=== PATIENT | female | born 1950 | race Caucasian/White ===

== ENCOUNTER 2020-01-20 15:24 | Inpatient (IN) | payer MEDICARE ==
[~2020-01-20] VITALS: Ht 170.2 cm; Wt 105.4 kg
[2020-01-20] MEDS ORDERED: ATEN25TA PO (15:34)
[2020-01-20] MEDS ORDERED: KETOROLAC 30 MG/ML 1ML VIAL IV ONE (16:30)
[2020-01-20] MEDS ORDERED: NS 500 ML IV ONE (16:30)
[2020-01-20 16:43] LABS: BASO # 0.1 10^3/uL (0.0-0.2); BASO % 0.3 % (0.0-1.0); EOS # 0.1 10^3/uL (0.0-0.5); EOS % 0.8 % (0.0-3.0); HEMATOCRIT 43.3 % (36.0-47.0); HEMOGLOBIN 14.6 g/dl (12.0-15.5); LYMPH # 2.3 10^3/uL (1.5-5.0); LYMPH % 15.7 % (24.0-44.0); MEAN CORPUSCULAR HGB CONC 33.7 g/dl (32.0-36.5); MEAN CORPUSCULAR VOLUME 88.9 fl (80.0-96.0); MONO % 7.1 % (0.0-5.0); NEUTROPHILS % 75.8 % (36.0-66.0); PLATELET COUNT, AUTOMATED 260 10^3/uL (150-450); RED BLOOD COUNT 4.87 10^6/uL (4.00-5.40); WHITE BLOOD COUNT 14.6 10^3/uL (4.0-10.0)
[2020-01-20 17:12] LABS: ALBUMIN 4.1 GM/DL (3.2-5.2); BILIRUBIN,DIRECT 0.3 MG/DL (0.0-0.2); BILIRUBIN,TOTAL 1.4 MG/DL (0.2-1.0); TOTAL PROTEIN 7.8 GM/DL (6.4-8.2)
--- NOTE | 2020-01-20 18:11 | REPVR ---
PROCEDURE INFORMATION: Exam: US Abdomen, Limited; Right Upper Quadrant Exam date and time: 01/20/2020 5:59 PM Age: 69 years old Clinical indication: Abdominal pain; Additional info: Ruq pain TECHNIQUE: Imaging protocol: US abdomen. Real time ultrasound with image documentation. Limited exam focused on the right upper quadrant. COMPARISON: No relevant prior studies available. FINDINGS: Liver: Normal. No masses. Gallbladder: There is a 2.4 cm gallstone present which may be impacted within the gallbladder neck. No wall thickening. No pericholecystic fluid. Clinical correlation to exclude cholecystitis suggested. Common bile duct: The common bile duct measures 3 mm. No mass or choledocholithiasis. Pancreas: Pancreas suboptimally visualized. Visualized segments appear unremarkable. Right kidney: Right kidney measures 9.9 x 4.2 x 4.5 cm. IMPRESSION: 1. There is a 2.4 cm gallstone present which may be impacted within the gallbladder neck. No wall thickening. No pericholecystic fluid. Clinical correlation to exclude cholecystitis suggested. 2. Suboptimal visualization of the pancreas although no gross abnormality demonstrated. 3. No dilatation of the biliary tree. Electronically signed by: Tanner Hampton On 01/20/2020 18:11:57 PM
[2020-01-20 18:54] LABS: CALCIUM LEVEL 9.4 MG/DL (8.8-10.2); CREATININE FOR GFR 1.34 MG/DL (0.55-1.30); POTASSIUM SERUM 3.8 MEQ/L (3.5-5.1)
[2020-01-20] MEDS ORDERED: ONDANSETRON 4MG/2ML VIAL IV PRN (19:00)
[2020-01-20] MEDS ORDERED: PERCOCET 5MG/325MG TAB PO PRN ×2 (19:00)
[2020-01-20] MEDS ORDERED: MEROPENEM INJ 1 GM in IV 1 EA IV ONE (19:15)
[2020-01-20] MEDS: metroNIDAZOLE 500 MG in IV 1 EA IV SCH (19:15)
[2020-01-20] MEDS ORDERED: SIMV40TA20 PO (19:19)
[2020-01-20] MEDS ORDERED: D31000TA2 PO (19:19)
[2020-01-20] MEDS ORDERED: HYDR25TAB PO (19:19)
[2020-01-20] MEDS ORDERED: OMEP-218 PO (19:19)
[2020-01-20] MEDS ORDERED: VITMTA PO (19:19)
[2020-01-20] MEDS ORDERED: ATEN50TA2 PO (19:19)
[2020-01-20] MEDS ORDERED: SERT-138 PO (19:19)
[2020-01-20] MEDS: CIPROFLOXACIN 400 MG in IV 1 EA IV SCH (20:20)
[2020-01-20] MEDS: MORPHINE 2 MG/ML 1ML VIAL (J2270) IV PRN (20:20)
[2020-01-20 22:04] VITALS: BP 116/62
[2020-01-20] MEDS: PANTOPRAZOLE 40MG VIAL (C9113 PER 1) IV SCH (22:49)
[2020-01-20] MEDS: LR 1,000 ML IV SCH (22:50)
[2020-01-20] MEDS: ENOXAPARIN 40MG/0.4ML SYRINGE (J1650 PER 10MG) SC SCH (22:50)
[2020-01-21] VITALS (10 sets, daily range): BP systolic 101–142; BP diastolic 59–70
[2020-01-21] MEDS: metroNIDAZOLE 500 MG in IV 1 EA IV SCH ×2 (03:10→16:35)
[2020-01-21] MEDS: ACETAMINOPHEN TAB 650MG DOSE (2X325MG) PO PRN (03:10)
--- NOTE | 2020-01-21 08:11 | HPEPDOC ---
General Surgery H&P Date of Admission Jan 20, 2020 Attending Physician: PORTIA WALLS MD History and Physical CHIEF COMPLAINT: abdominal pain HISTORY OF PRESENT ILLNESS: Patient is a 69-year-old female who drove in from [facility] after she was seen there earlier in the day with complaints of a 2 day ongoing history of right flank/right back pain radiating to her mid chest area, epigastric area and right upper quadrant area for which was found to have evidence for incarcerated stone in the neck the gallbladder and leukocytosis consistent with acute cholecystitis. She was told she needed surgery in that she presented to our emergency room. She describes the pain as sharp and constant with associated na usea but she did not throw up. She denies any associated fevers or chills. She reports a remote history of similar symptoms but has not bothered her in years. In the emergency room she initially presented with 10 out of 10 pain, improved with pain medication. We repeated the studies and confirmed the findings of acute cholecystitis and she was subsequently admitted. ALLERGIES: Please see below. HOME MEDICATIONS: Please see below. PAST MEDICAL HISTORY: 1. Hypertension. 2.. Hypercholesterolemia 3. Depression. 4. psoriatic arthritis 5. morbid obesity 6. cervical cancer PAST SURGICAL HISTORY: 1. hysterectomy (lower vertical midline incision). 2. catract surgery. PERSONAL/SOCIAL HISTORY: Denies smoking, occasional alcohol use REVIEW OF SYSTEMS: GENERAL: Denies chills, fatigue, fever, weight gain and weight loss. HEENT: [Denies blurred vision and double vision. Denies ear symptoms. Denies hoarseness]. NECK: [Denies any neck pain]. CARDIOVASCULAR: [Denies chest pain and palpitations]. MUSCULOSKELETAL: Reports history of psoriatic arthritis not on maintenance medications. SKIN: [Denies rash]. NEUROLOGIC: [Denies headache, stroke and transient ischemic attack]. PSYCHIATRIC: Reports history of depression. ENDOCRINE: [Denies thyroid disease]. HEMATOLOGY/ONCOLOGY: [Denies any bleeding or clotting disorder]. HEART: [Denies any chest pains, palpitations, paroxysmal dyspnea, orthopnea]. PULMONARY: [Denies chronic cough, dyspnea and wheezing]. GASTROINTESTINAL: See HPI. GENITOURINARY: [Denies dysuria, frequency, hematuria and nocturia]. ENDOCRINE: [Denies polydipsia, polyphagia, polyuria, heat or cold intolerance]. INFECTIOUS: [Denies any recent upper respiratory tract infection, UTI, need for use of antibiotics]. NUTRITION: Reports poor appetite since starting symptoms. PHYSICAL EXAMINATION: VITAL SIGNS: Please see below. GENERAL APPEARANCE: Patient seen laying in bed, relatively comfortable. Reports pain as 3 out of 10. [Awake, alert, oriented]. HEENT: [Normocephalic, atraumatic. Campus palpebral conjunctivae. Anicteric sclerae. Lips dry]. CHEST: [No chest wall abnormalities. Normal respiratory motion/effort]. NECK: [Supple. No thyromegaly. No lymphadenopathies]. LUNGS: [Lung sounds are clear to auscultation bilaterally. No wheezing appreciated]. HEART: [No chest wall abnormalities. Heart rate and rhythm are regular with no murmurs]. ABDOMEN: Markedly obese, large draping pannus, minimally distended. Lower vertical midline incision no palpable hernia. Tender on palpation over the epigastric area with mild guarding also at the right upper quadrant area. Nontender in the other quadrants. SKIN: Warm and dry. NEUROLOGICAL: Awake, alert and oriented. ANCILLARIES: . LABORATORY DATA: Please see below. MICROBIOLOGY: Please see below. IMAGING: Ultrasound the gallbladder showing stone at the neck the gallbladder, nonmovable IMPRESSION AND PLAN: Patient with signs and symptoms of biliary colic/acute cholecystitis with an impacted stone in the neck the gallbladder and continuing pain consistent with acute cholecystitis. Given the persistence of symptoms, I have admitted her to the hospital. Started her on antibiotics to cover for gram negatives and anaerobes. She will remain nothing by mouth for bowel rest and have set her up for laparoscopic cholecystectomy the following day. I discussed with the patient the details of the proposed procedure, the benefits of performing the procedure, the most common risks on doing the procedure. This may include risks for bleeding, infection, bile duct injury, bile leakage, injury to nearby bowels or blood vessels with laparoscopy. I have given her a chance to ask questions, voice out concerns. Patient has agreed to proceed. Vital Signs Vital Signs Date Time Temp Pulse Resp B/P (MAP) Pulse Ox O2 Delivery O2 Flow Rate FiO2 01/21/20 06:00 96.1 54 18 101/59 (73) 96 Room Air I&Os I&O- Last 24 Hours up to 6 AM 01/21/20 06:00 Intake Total 1005 ml Output Total 600 ml Balance 405 ml Laboratory Data Labs 24H Laboratory Tests 2 01/20/20 16:33: Immature Granulocyte % (Auto) 0.3, Neutrophils (%) (Auto) 75.8H, Lymphocytes (%) (Auto) 15.7L, Monocytes (%) (Auto) 7.1H, Eosinophils (%) (Auto) 0.8, Basophils (%) (Auto) 0.3, Neutrophils # (Auto) 11.0H, Lymphocytes # (Auto) 2.3, Monocytes # (Auto) 1.0H, Eosinophils # (Auto) 0.1, Basophils # (Auto) 0.1, Nucleated Red Blood Cells % (auto) 0.0, Anion Gap 10, Glomerular Filtration Rate 42.0L, Calcium Level 9.4, Total Bilirubin 1.4H, Direct Bilirubin 0.3H, Aspartate Amino Transf (AST/SGOT) 15, Alanine Aminotransferase (ALT/SGPT) 18, Alkaline Phosphatase 122H, Total Protein 7.8, Albumin 4.1, Albumin/Globulin Ratio 1.1L, Lipase 80 01/20/20 19:14: Coronavirus (COVID-19)(PCR) NEGATIVE CBC/BMP Laboratory Tests 01/20/20 16:33 Home Medications Scheduled Atenolol (Atenolol) 50 Mg Tablet, 50 MG PO QHS, (Reported) Cholecalciferol (Vitamin D3) (Vitamin D3) 1,000 Unit Tablet, 2,000 UNITS PO QHS, (Reported) Hydrochlorothiazide (Hydrochlorothiazide) 25 Mg Tablet, 25 MG PO QHS, (Reported) Multivitamins (Thera M Plus Tablet) 1 Each Tablet, 1 TAB PO QHS, (Reported) Omeprazole (Omeprazole) 20 Mg Capsule.dr, 20 MG PO QHS, (Reported) Sertraline HCl (Sertraline HCl) 100 Mg Tablet, 200 MG PO QHS, (Reported) Simvastatin (Simvastatin) 40 Mg Tablet, 40 MG PO QHS, (Reported) Allergies Coded Allergies: Penicillins (Verified Allergy, Severe, throat tightening, 01/20/20) iodine (Verified Allergy, Severe, anyphylaxis, 01/20/20) A-FIB/CHADSVASC A-FIB History Current/History of A-Fib/PAF?: No Current PO Anticoag Therapy: No PORTIA WALLS MD Jan 21, 2020 08:11
[2020-01-21] MEDS: MORPHINE 2 MG/ML 1ML VIAL (J2270) IV PRN (09:21)
[2020-01-21] MEDS: LR 1,000 ML IV SCH ×2 (09:21→14:56)
[2020-01-21] MEDS: CIPROFLOXACIN 400 MG in IV 1 EA IV SCH ×2 (09:21→20:48)
[2020-01-21] MEDS ORDERED: MIDAZOLAM INJ 2MG/2ML VIAL (J2250 PER 1MG) As Ordered ONE (11:40)
[2020-01-21] MEDS ORDERED: propofoL 200 MG/20 ML VIAL As Ordered ONE (11:41)
[2020-01-21] MEDS ORDERED: LIDOCAINE 1% SDV 30ML VIAL As Ordered ONE (12:15)
[2020-01-21] MEDS ORDERED: BUPIVACAINE HCL 0.25% 30ML VIAL As Ordered ONE (12:15)
[2020-01-21] MEDS ORDERED: GLYCOPYRROLATE INJ 0.2 MG/ML 2 ML VIAL As Ordered ONE (12:44)
[2020-01-21] MEDS ORDERED: fentaNYL 100 MCG/2 ML INJECTION (J3010) As Ordered ONE ×2 (12:48→15:03)
[2020-01-21] MEDS ORDERED: ePHEDrine SULFATE 25 MG/5 ML(5MG/ML) SYRINGE As Ordered ONE (12:50)
[2020-01-21] MEDS ORDERED: dexameTHASONE 4 MG/ML 1ML VIAL (J1100 PER 1MG) As Ordered ONE (12:51)
[2020-01-21] MEDS ORDERED: METOCLOPRAMIDE INJ 10MG/2ML VIAL (J2765 PER 1) As Ordered ONE (12:52)
[2020-01-21] MEDS ORDERED: ROCURONIUM BROMIDE 50 MG/5 ML VIAL As Ordered ONE ×2 (12:53→12:57)
[2020-01-21] MEDS ORDERED: ONDANSETRON 4MG/2ML VIAL As Ordered ONE (12:54)
[2020-01-21] MEDS ORDERED: SUGAMMADEX SODIUM 500 MG/5 ML VIAL (BRIDION) As Ordered ONE (12:54)
[2020-01-21] MEDS ORDERED: ACETAMINOPHEN 1000MG 100ML IV BTL (OFIRMEV) (J0131 PER 10MG) As Ordered ONE (12:56)
[2020-01-21] MEDS ORDERED: HYDROmorphone HCL 2 MG/ML 1ML VIAL (J1170) As Ordered ONE (14:15)
[2020-01-21] MEDS ORDERED: METOCLOPRAMIDE INJ 10MG/2ML VIAL (J2765 PER 1) IV PRN (15:00)
[2020-01-21] MEDS ORDERED: fentaNYL 100 MCG/2 ML INJECTION (J3010) IV PRN (15:00)
[2020-01-21] MEDS ORDERED: PERCOCET 5MG/325MG TAB PO PRN (15:00)
[2020-01-21] MEDS ORDERED: LR 1,000 ML IV SCH (15:00)
[2020-01-21] MEDS ORDERED: ONDANSETRON 4MG/2ML VIAL IV PRN (15:00)
[2020-01-21] MEDS ORDERED: PERCOCET 5MG/325MG TAB As Ordered ONE (15:03)
[2020-01-21] MEDS: ENOXAPARIN 40MG/0.4ML SYRINGE (J1650 PER 10MG) SC SCH (20:45)
[2020-01-21] MEDS: PANTOPRAZOLE 40MG VIAL (C9113 PER 1) IV SCH (20:48)
[2020-01-21] MEDS ORDERED: SERTRALINE 100 MG TAB PO SCH (21:00)
[2020-01-21] MEDS ORDERED: VITAMIN D 1,000 INTERNATIONAL UNITS TABLET PO SCH (21:00)
[2020-01-21] MEDS ORDERED: atenoloL 50 MG TAB PO SCH (21:00)
[2020-01-21] MEDS ORDERED: hydroCHLOROthiazide 25 MG TAB PO SCH (21:00)
[2020-01-21] MEDS ORDERED: MULTIVITAMINS/MINERALS THERAP 1 TAB PO SCH (21:00)
[2020-01-21] MEDS ORDERED: OMEPRAZOLE 20 MG CAP PO SCH (21:00)
[2020-01-21] MEDS ORDERED: SIMVASTATIN 40 MG TAB PO SCH (21:00)
[2020-01-22] MEDS: LR 1,000 ML IV SCH (00:01)
[2020-01-22] MEDS: metroNIDAZOLE 500 MG in IV 1 EA IV SCH ×2 (00:31→08:28)
[2020-01-22 00:40] VITALS: BP 130/64
[2020-01-22] MEDS: ACETAMINOPHEN TAB 650MG DOSE (2X325MG) PO PRN (01:43)
[2020-01-22 02:05] VITALS: BP 127/65
[2020-01-22 06:00] VITALS: BP 128/65
[2020-01-22 06:17] LABS: BASO % 0.1 % (0.0-1.0); EOS % 0.1 % (0.0-3.0); HEMATOCRIT 35.7 % (36.0-47.0); LYMPH # 0.9 10^3/uL (1.5-5.0); MEAN CORPUSCULAR HEMOGLOBIN 30.2 pg (27.0-33.0); MEAN CORPUSCULAR HGB CONC 33.6 g/dl (32.0-36.5); MEAN CORPUSCULAR VOLUME 89.9 fl (80.0-96.0); MONO # 0.5 10^3/uL (0.0-0.8); MONO % 4.8 % (0.0-5.0); NEUTROPHILS # 9.6 10^3/uL (1.5-8.5); NEUTROPHILS % 86.5 % (36.0-66.0); PLATELET COUNT, AUTOMATED 229 10^3/uL (150-450); RED BLOOD COUNT 3.97 10^6/uL (4.00-5.40); WHITE BLOOD COUNT 11.1 10^3/uL (4.0-10.0)
[2020-01-22 06:46] LABS: ALBUMIN 2.9 GM/DL (3.2-5.2); BILIRUBIN,TOTAL 0.7 MG/DL (0.2-1.0); CALCIUM LEVEL 9.1 MG/DL (8.8-10.2); GLOMERULAR FILTRATION RATE 58.9 (>45); POTASSIUM SERUM 3.9 MEQ/L (3.5-5.1); TOTAL PROTEIN 7.1 GM/DL (6.4-8.2)
[2020-01-22] MEDS: CIPROFLOXACIN 400 MG in IV 1 EA IV SCH (09:55)
[2020-01-22] MEDS ORDERED: LEVO500T3 PO (09:57)
[2020-01-22 10:00] VITALS: BP 126/63
--- NOTE | 2020-01-22 10:19 | ROOPDOC ---
[facility] Report Of Operation Report of Operation DATE OF PROCEDURE: 01/21/20 PREPROCEDURE DIAGNOSES: Cholelithiasis, acute cholecystitis. POSTPROCEDURE DIAGNOSES: Cholelithiasis, acute cholecystitis. PROCEDURE: Robotic-assisted laparoscopic cholecystectomy. SURGEON: Davon Swift MD OUTREACH MANAGER: Pippa Pitt NP Yoandy assisted me with placement of the ports, manipulation of the instruments and arms on the field while I was surgeon's console, extraction of the gallbladder and closure reports ANESTHESIA: General endotracheal anesthesia. ESTIMATED BLOOD LOSS: Approximately 20 mL. COMPLICATIONS: none. REMARKS: Patient is a morbidly obese female who presented to the emergency room with a 2 day history of epigastric and right upper quadrant abdominal pain, nausea and evidence for cholelithiasis and beginning acute cholecystitis on imaging with leukocytosis. She was admitted and today's brought to the operating room for laparoscopic cholecystectomy.. PROCEDURE NOTE: Tensely distended gallbladder but relatively thin-walled with evidence for mild acute inflammation, pericholecystic fluid most prominent at the posterior wall of the gallbladder, roughly a 1.5-2 cm stone lodged at the neck of the gallbladder. DESCRIPTION OF PROCEDURE: Patient is receiving ciprofloxacin 500 mg IV q 12h and metronidazole 500 mg IV q 8hs for acute cholecystitis. She was brought to the operating room, laid supine on the table, compression boots placed for DVT prophylaxis. General endotracheal anesthesia started. Her abdomen then prepped and draped in usual sterile fashion. Surgical timeout was performed prior to confirm right procedure, right patient identification and other necessary information prior to starting surgery. She has a very wide, thick pannus with a deep crease right about the umiblical line. She also has a prior lower midline incision from her hyst erectomy. Entry into the abdomen done through an incision at the left upper quadrant area.. A Veress needle was inserted with a controlled fashion. CO2 insufflation started to pressure 15 mmHg. Using the same incision an 5 mm optical trocar was placed on the same incision. Insertion site was inspected for injury and none was found. She has white areas along the lower abdomen were we traditionally placed our robotic ports with omental adhesions from her prior surgery. I placed an 8 mm robotic trocar under direct vision over at the anterior axillary line on the right side for visualization. I then used the laparoscopic scissors connected to monopolar cautery to bring down the omental adhesions from the anterior abdominal wall to accommodate the placement of the robotic trochars. Not all of the omental adhesions were taken down, just enough to clear the area of trocar placements. She was then placed on a 10 mm reverse Trendelenburg position to allow visualization of the right upper quadrant area. Under direct vision 3 other 8 mm robotic trochars were placed along the same line as the first trocar about 12 cm apart. A transversus abdominis plane block was then performed bilaterally using the lidocaine/marcaine mixture under laparoscopic guidance. On inspection of the gallbladder disease as initially covered with omentum. This was easily retracted away the animal nutritionist for the tensely distended gallbladder with relatively thin-walled. There is a small amount of pericholecystic wall edema. I used an aspirating needle to decompress the gallbladder yielding thick black bile. Her liver is rough in texture, enlarged from fatty replacement The da Reyes robot tower was then maneuvered in place and the trochars docked to the robot. I used a prograsp, forced bipolar, and hook cautery for the procedure with a 30 robotic camera. I unscrubbed and assumed control of the camera and instruments at the surgeon's console. The fundus of the gallbladder was grasped and the gallbladder is elevated superiorly exposing the neck of the gallbladder. Even with the gallbladder getting decompressed are still a good amount of bile and the gallbladder is still moderately distended. Together with the thick omentum as well as mildly distended stomach there was some difficulty viewing the hepatocystic triangle. I couldn't make up the hepatocystic node and anticipate this is where the cystic artery and courses under. I started dissection under this area opening up the peritoneum and extending the circumferentially about the level of the infundibu lum. The infundibulum was retracted laterally and I continued dissection of the hepatocystic triangle. The cystic artery was identified and I proceeded dissecting medially to identify the cystic duct as it courses out of the gallbladder neck. This was circumferentially dissected. I continued posterior dissection proximally at the neck of gallbladder to dissect the posterior wall of the gallbladder off the liver plate until a critical view of safety was achieved whereby only the previously identified duct and artery coursing through the neck the gallbladder(photodocumentation done.) At this point the the cystic artery was most accessible and this was clipped 2 times and divided in between the hemlock clips. After again checking her anatomy and verifying with firely the course of thecystic duct and common bile duct, this was also clipped and divided with 2 clips remaining at the cystic duct stump. The rest of the gallbladder was then dissected free of the gallbladder bed using Bovie cautery. The gallbladder was then placed in an Endo Catch bag and retrieved outside through the right axillary port site with partial enlargement of the port site by my personal injury legal assistant to accomodate the gallbladder. The clips and liver bed was inspected for bleeding and bile leakage and none found. I closed the extraction site with a 2-0 vloc stitch. The abdomen was deflated, The trochars undocked, the robot removed from the field. Rest of the skin incisions closed with 4-0 Monocryl in subcuticular fashion. Dermabond placed to cover the incisions.. Patient was awakened, extubated and brought to recovery room stable. DAVON SWIFT MD Jan 22, 2020 10:19
--- NOTE | 2020-01-22 10:28 | DS.PDOC ---
Discharge Summary General Date of Admission Jan 20, 2020 at 18:56 Date of Discharge 01/22/2020 Attending Physician: PORTIA WALLS MD Discharge Summary PROCEDURES PERFORMED DURING STAY: Robotic-assisted laparoscopic cholecystectomy (01/13/2020). ADMITTING DIAGNOSES: 1. Acute cholecystitis 2. Morbid obesity. 3. Hypertension DISCHARGE DIAGNOSES: 1. Acute cholecystitis 2. Morbid obesity 3. Hypertension . COMPLICATIONS/CHIEF COMPLAINT: Acute Cholecystitis. HISTORY OF PRESENT ILLNESS: Patient is a 69-year-old female who drove in from [facility] after she was seen there earlier in the day with complaints of a 2 day ongoing history of right flank/right back pain radiating to her mid chest area, epigastric area and right upper quadrant area for which was found to have evidence for incarcerated stone in the neck the gallbladder and leukocytosis consistent with acute cholecystitis. She was told she needed surgery in that she presented to our emergency room. She describes the pain as sharp and constant with associated nausea but she did not throw up. She denies any associated fevers or chills. She reports a remote history of similar symptoms but has not bothered her in years. In the emergency room she initially presented with 10 out of 10 pain, improved with pain medication. We repeated the studies and confirmed the findings of acute cholecystitis and she was subsequently admitted. HOSPITAL COURSE: Patient was admitted overnight and started on IV antibiotics. She was placed on ciprofloxacin 400 mg IV every 12 hours and metronidazole prior band grams IV every 8 hours. She was kept nothing by mouth. She was scheduled for laparoscopic cholecystectomy and this was done on 01/20/2020. She underwent robotic-assisted laparoscopic cholecystectomy. She tolerated her procedure well. She was started on clear liquids which she tolerated and subsequently advanced the following day. On postop day 1 she was evaluated and was markedly improved with no persistent abdominal pain. Her postoperative labs were all stable including her LFTs. She tolerated her diet and subsequently has been discharged home with by mouth antibiotics. DISCHARGE MEDICATIONS: Please see below. ALLERGIES: Please see below. PHYSICAL EXAMINATION ON DISCHARGE: VITAL SIGNS: Please see below. GENERAL: Patient appears much more comfortable HEENT: Normocephalic, atraumatic, anicteric sclerae, lips and mucosa are moist NECK: Short and supple, no jugular venous distention CARDIOVASCULAR EXAMINATION: Regular heart rate and rhythm without murmurs RESPIRATORY EXAMINATION: Clear breath sounds auscultation bilaterally without wheezing ABDOMINAL EXAMINATION: Morbidly obese, nondistended. Buttock/laparoscopic port sites covered with Dermabond, minimal skin ecchymosis. Nontender on palpation throughout the abdomen EXTREMITIES: No significant extremity edema SKIN: No jaundice NEUROLOGICAL EXAMINATION: Awake, alert and oriented LABORATORY DATA: Please see below. IMAGING: Ultrasound of the right upper quadrant PROGNOSIS: Good ACTIVITY: Light activity 1 week, and advance as tolerated. DIET: Advance as tolerated DISCHARGE PLAN: Patient would be discharged home on a 7 day antibiotic course of levofloxacin 500 mg daily DISPOSITION: . DISCHARGE INSTRUCTIONS: 1. As above. 2. Call if with any problems otherwise follow-up in 2 weeks 3. Complete 70 antibiotic course ITEMS TO FOLLOWUP ON ON OUTPATIENT: 1. Pathology result. DISCHARGE CONDITION: Stable. TIME SPENT ON DISCHARGE: Greater than 30 minutes. Vital Signs/I&Os Vital Signs Date Time Temp Pulse Resp B/P (MAP) Pulse Ox O2 Delivery O2 Flow Rate FiO2 01/22/20 06:00 98.4 63 18 128/65 (86) 98 Room Air 01/22/20 02:05 1.0 01/21/20 14:45 100 I&O- Last 24 Hours up to 6 AM 01/22/20 06:00 Intake Total 2020 ml Output Total 2270 ml Balance -250 ml Laboratory Data Labs 24H Laboratory Tests 2 01/22/20 05:35: Immature Granulocyte % (Auto) 0.5, Neutrophils (%) (Auto) 86.5H, Lymphocytes (%) (Auto) 8.0L, Monocytes (%) (Auto) 4.8, Eosinophils (%) (Auto) 0.1, Basophils (%) (Auto) 0.1, Neutrophils # (Auto) 9.6H, Lymphocytes # (Auto) 0.9L, Monocytes # (Auto) 0.5, Eosinophils # (Auto) 0.0, Basophils # (Auto) 0.0, Nucleated Red Blood Cells % (auto) 0.0 01/22/20 05:36: Anion Gap 7L, Glomerular Filtration Rate 58.9, Calcium Level 9.1, Total Bilirubin 0.7, Aspartate Amino Transf (AST/SGOT) 25, Alanine Aminotransferase (ALT/SGPT) 23, Alkaline Phosphatase 101, Total Protein 7.1, Albumin 2.9#L, Albumin/Globulin Ratio 0.7L CBC/BMP Laboratory Tests 01/22/20 05:35 10/29/20 05:36 Discharge Medications Scheduled Atenolol (Atenolol) 50 Mg Tablet, 50 MG PO QHS, (Reported) Cholecalciferol (Vitamin D3) (Vitamin D3) 1,000 Unit Tablet, 2,000 UNITS PO QHS, (Reported) Hydrochlorothiazide (Hydrochlorothiazide) 25 Mg Tablet, 25 MG PO QHS, (Reported) Levofloxacin (Levofloxacin) 500 Mg Tablet, 1 TAB PO DAILY Multivitamins (Thera M Plus Tablet) 1 Each Tablet, 1 TAB PO QHS, (Reported) Omeprazole (Omeprazole) 20 Mg Capsule.dr, 20 MG PO QHS, (Reported) Sertraline HCl (Sertraline HCl) 100 Mg Tablet, 200 MG PO QHS, (Reported) Simvastatin (Simvastatin) 40 Mg Tablet, 40 MG PO QHS, (Reported) Allergies Coded Allergies: Penicillins (Verified Allergy, Severe, throat tightening, 01/20/20) iodine (Verified Allergy, Severe, anyphylaxis, 01/20/20) PORTIA WALLS MD Jan 22, 2020 10:28
--- NOTE | 2020-01-23 09:05 | ECGEPIP ---
[facility] Test Date: 2020-01-21 Pat Name: VAN ABBOTT Department: Room: [place] [address] Gender: Female Anesthesiology Fellow: : 1950 Requested By: Gunnar Vincent Order Number: [id number] Reading MD: Ramírez Aaron Measurements Intervals [place] Rate: 55 P: 27 HI: 185 QRS: -48 QRSD: 112 T: -10 QT: 447 QTc: 430 Interpretive Statements SINUS BRADYCARDIA, Poor R wave progression, PATTERN CONSISTENT WITH PULMONARY DISEASE LEFT ANTERIOR FASCICULAR BLOCK Nonspecific T wave abnormalities. No prior ECG available for comparison at the time of interpretation. Electronically Signed on 01-23-2020 9:05:30 EDT by Ramírez Aaron
== END 2020-01-22 11:33 | disposition home or self-care (01) | DRG 419 ==
LOC: M ED 15:24 → M ED INP 18:56 → M MSPAV 22:14
PROVIDERS: ADMIT Surgery; ATTEND Surgery
PROC: 8E0W4CZ Robotic Assisted Procedure of Trunk Region, Percutaneous Endoscopic Approach (ICD-10-PCS; 2020-01-21)
PROC: 0FT44ZZ Resection of Gallbladder, Percutaneous Endoscopic Approach (ICD-10-PCS; principal; 2020-01-21 12:45)
DX: K80.00 Calculus of gallbladder with acute cholecystitis without obstruction (principal); I10 Essential (primary) hypertension; E78.00 Pure hypercholesterolemia, unspecified; F32.9 Major depressive disorder, single episode, unspecified; L40.50 Arthropathic psoriasis, unspecified; E66.01 Morbid (severe) obesity due to excess calories; Z85.41 Personal history of malignant neoplasm of cervix uteri; Z90.710 Acquired absence of both cervix and uterus; Z98.49 Cataract extraction status, unspecified eye; Z79.899 Other long term (current) drug therapy; Z88.0 Allergy status to penicillin; Z88.8 Allergy status to other drugs, medicaments and biological substances; Z68.36 Body mass index [BMI] 36.0-36.9, adult